=== PATIENT | female | born 1945 | race Caucasian/White ===

== ENCOUNTER 2019-08-04 00:38 | Inpatient (IN) | payer MEDICARE, OTHER ==
[~2019-08-04] VITALS: Ht 165.1 cm; Wt 110.0 kg
--- NOTE | ~2019-08-04 | CON ---
[address] [address] CONSULTATION Name: GABRIELE CHUN Room: [address] IN M.R.#: [id number] Admission: 08/04/19 Attend Phys: Diane Duval Discharge: Date of : 49 Report #: [id number] THIS REPORT FOR: //name// CC: Tonio Jenkins DATE OF SERVICE: 08/05/2019 NEPHROLOGY CONSULTATION CONSULTING PHYSICIAN: Gerard Jenkins DO REASON FOR NEPHROLOGY CONSULTATION: Acute kidney injury in a patient with renal transplant. REASON FOR ADMISSION: Dyspnea. HISTORY OF PRESENT ILLNESS: This is a 73-year-old female who was brought in from [place] yesterday because of shortness of breath. She has past medical history of chronic kidney disease. Her baseline creatinine is around 1.2. She has a history of donor kidney transplant in the past. She was brought in because of dyspnea and weight gain. She was started on Lasix IV 40 mg b.i.d. Her breathing seems to be better this morning. She also has history of COPD. She recently had a prolonged hospitalization at [place] because of shortness of breath. Her edema seems to be at baseline right now. She is on chronic immunosuppressive treatment. This morning, she was sleeping comfortably, I woke her up and she is just hungry and wants to eat some ____ toast. She is on 2 liters of oxygen via nasal cannula. A bladder scan will be checked. ALLERGIES: PENICILLIN, SULFA AND PIOGLITAZONE. REVIEW OF SYSTEMS: As mentioned in history of present illness. Her breathing is better. She is not having coughing right now. Otherwise, 10-point review of systems done, negative. She also has weakness. HOME MEDICATIONS: I do not think this is an actually accurate list, but looks like she is on mycophenolate mofetil 500 mg b.i.d. She is on warfarin, she is on Zofran, she is on metolazone 5 mg p.o. daily, which she was not on that when she was at [facility] recently, Lasix 40 mg once a day, amlodipine 5 mg daily, insulin, polyethylene glycol, tacrolimus. She is on 2 mg in the morning and 1 mg in the evening, sertraline, montelukast, magnesium, hydrocodone, acetaminophen, hydralazine, doxazosin, carvedilol, levothyroxine, glipizide, and potassium chloride 20 mEq once daily. PAST MEDICAL AND SURGICAL HISTORY: Includes chronic [place] [address] CONSULTATION Name: GABRIELE CHUN Room: [address] IN .R.#: [id number] Admission: 08/04/19 Attend Phys: Diane Duval Discharge: Date of : 49 Report #: [id number] failure, ejection fraction is not known, COPD, diabetes type 2, hypertension, obesity. She has a history of donor kidney transplant in 2006 and she has chronic kidney disease, her baseline creatinine around 1.2 and mostly dependent edema. FAMILY HISTORY: Noncontributory. SOCIAL HISTORY: She lives at [place] right now and that is why she has been here for a long time. She does not smoke or drink alcohol or use illicit drugs. PHYSICAL EXAMINATION: VITAL SIGNS: Blood pressure is 157/82, her respiratory rate is 16, her pulse is 87, temperature 36.6, her pulse ox is 99%. She is on 2 liters of oxygen by nasal cannula. GENERAL: She was sleeping, but easily woke her up. HEAD AND EYES: Atraumatic and normocephalic. EARS, NOSE, AND THROAT: Normal ears and nose. Normal mucous membranes. NECK: No JVD. CHEST: Bilaterally diminished breath sounds, but otherwise clear to auscultation bilaterally anteriorly. No crackles or wheezing. CARDIOVASCULAR: S1, S2 normal. No murmurs. ABDOMEN: Soft, nondistended, nontender and obese. LOWER EXTREMITIES: Her lower extremities skin is dry. She has 3+ chronic edema. NEUROLOGICAL FUNCTION: She has generalized weakness. PSYCHIATRIC: Mood seems to be normal. LABORATORY DATA: Hemoglobin is 8.9. Creatinine is 1.6, which is up from 1.4. Her INR is 9.0. Other labs are reviewed. IMAGING: Chest x-ray was reviewed. ASSESSMENT: 1. Acute kidney injury on chronic kidney disease stage 3. She has history of donor kidney transplant in 2006. Acute kidney injury in the setting of diuretic use. There is no need for checking renal imaging right now. We will order a UA. 2. History of chronic systolic congestive heart failure. She does not seem to be in acute exacerbation, helpful to get records from [facility]. 3. History of hypertension. 4. Paroxysmal atrial fibrillation. She is on anticoagulation, supratherapeutic INR, primary team is managing that. 5. History of chronic obstructive pulmonary disease. PLAN: [address] [place] [address] CONSULTATION Name: GABRIELE CHUN Room: [address] IN ..#: [id number] Admission: 08/04/19 Attend Phys: Diane Duval Discharge: Date of : 49 Report #: [id number] 1. There is no need for IV diuresis. Her edema seems to be at her baseline, we will put her on Bumex 0.5 mg twice a day. 2. Continue immunosuppressive treatment, but Prograf has been adjusted to 2 mg in the morning and 1 mg in the evening and we will check a Prograf level also tonight an hour before her dose. 3. She should be on 1800 mL fluid restriction. She is to be 2 gram sodium diet. 4. Please try to obtain records from [facility] in regards to especially her ejection fraction and she had a prolonged hospitalization there recently. 5. Also, check a bladder scan. 6. Strict I's and O's. Discussed with the patient and the patient's nurse. I have taken her off of the liquid diet and we will put her on a solid diet instead. Thank you for this consultation. We will continue to follow along with you. By: [id number] 134Tatiana Abbott MD /reny
[2019-08-04 00:42] VITALS: BP 121/85
[2019-08-04] MEDS ORDERED: POTASSIUM20 PO (00:52)
[2019-08-04] MEDS ORDERED: MYCOPHENOLATE500 MG PO (00:53)
[2019-08-04] MEDS ORDERED: LEVO-T100 MCG PO (00:55)
[2019-08-04] MEDS ORDERED: GLIPIZIDE5 MG PO (00:55)
[2019-08-04] MEDS ORDERED: CARVEDILOL25 MG PO (00:56)
[2019-08-04] MEDS ORDERED: CARDURA2 MG PO (00:57)
[2019-08-04] MEDS ORDERED: HYDRALAZINE HC100 MG PO (00:57)
[2019-08-04] MEDS ORDERED: NORCO 5-325 TA1 EAC1 PO (00:58)
[2019-08-04] MEDS ORDERED: MAGNESIUM250 M1 PO (00:59)
[2019-08-04 01:00] LABS: ABSOLUTE EOSINOPHILS 0.1 thou/uL (0.0-0.7); ABSOLUTE LYMPHOCYTES 0.8 thou/uL (0.8-5.3); ABSOLUTE MONOCYTES 0.3 thou/uL (0.0-1.2); ABSOLUTE NEUTROPHILS 3.5 thou/uL (1.6-8.1); BASOPHILS 0.8 %; EOSINOPHILS 2.3 %; HEMATOCRIT 28.4 % (37.0-47.0); HEMOGLOBIN 8.9 gm/dL (12.0-15.0); LYMPHOCYTES 16.3 %; MCH 26.7 pg (26.0-34.0); MCHC 31.4 g/dL (28.0-37.0); MCV 84.9 fL (80.0-100.0); MONOCYTES 6.4 %; MPV 8.8 fl. (7.2-11.1); NUCLEATED RBCS 0 /100WBC; PLATELET COUNT* 152 thou/uL (150-400); POLYS 74.2 %; RBC 3.34 mil/uL (4.20-5.00); RDW-CV 19.9 % (10.5-14.5); WBC 4.7 thou/uL (4.0-11.0)
[2019-08-04] MEDS ORDERED: SERTRALINE HCL100 MG PO (01:00)
[2019-08-04] MEDS ORDERED: SINGULAIR 10 MG10 M1 PO (01:00)
[2019-08-04] MEDS ORDERED: TACROLIMUS1 MG PO (01:02)
[2019-08-04] MEDS ORDERED: MIRALAX119 GM PO (01:02)
[2019-08-04] MEDS ORDERED: HUMALOG100 UNIT/1 SUBQ (01:03)
[2019-08-04] MEDS ORDERED: NORVASC 2.5 MG2.5 M1 PO (01:05)
[2019-08-04] MEDS ORDERED: LASIX 40 MG TAB40 MG PO (01:06)
[2019-08-04] MEDS ORDERED: ZAROXOLYN 5MG TA5 MG PO (01:06)
[2019-08-04] MEDS ORDERED: ZOFRAN4 MG PO (01:07)
[2019-08-04] MEDS ORDERED: COUMADIN 4 MG TA4 M1 PO (01:08)
[2019-08-04] MEDS ORDERED: MEPHYTON 5 MG TA5 M1 PO (01:10)
[2019-08-04 01:12] LABS: CALCIUM 7.3 mg/dL (8.5-10.1); CREATININE 1.4 mg/dL (0.6-1.3); POTASSIUM 3.9 mmol/L (3.5-5.1)
[2019-08-04 01:15] LABS: INFLUENZA A ANTIGEN Negative (Negative); INFLUENZA B ANTIGEN Negative (Negative)
[2019-08-04 01:18] LABS: APTT 47.9 Seconds (25.0-31.3); PROTIME 85.5 Seconds (9.20-11.50)
[2019-08-04 01:22] LABS: ALBUMIN 2.4 g/dL (3.4-5.0); TOTAL BILIRUBIN 0.3 mg/dL (<0.1-1.0); TOTAL PROTEIN 5.7 g/dL (6.4-8.2)
--- NOTE | 2019-08-04 01:48 | NUR ---
NOTED PATIENT HAS DIALYSIS CATHETER RIGHT ARM. PATIENT STATES THAT SINCE SHE HAS HAD A KIDNEY TRANSPLANT THE DIALYSIS CATHATER HAS NOT BEEN USED.
--- NOTE | 2019-08-04 04:25 | NUR ---
PATIENT RESTING IN HOSPITAL BED
[2019-08-04 05:20] VITALS: BP 159/76
[2019-08-04 08:03] VITALS: BP 159/76
--- NOTE | 2019-08-04 11:23 | NUR ---
PT.ALERT. JUST ADMITTED THIS AM. DAUGHTER AND GRANDAUGHTER AT BEDSIDE. PT. LOOKS TO DAUGHTER TO ANSWER MOST QUESTIONS. DAUGHTER SAID PT.HAS LIVED AT [facility] FOR A FEW MONTHS. SHE HAS NOT SEEN HER WALK THE PAST YEAR. SHE CAN TRANSFER IN TO WITH ASSIST. DAUGHTER SAID PT.WAS JUST DISCHARGED FROM [facility] A WEEK AGO. CAME BACK TO [facility] WITH SAME PROBLEM. PT.SAID CPAP REALLY HELPED HER AT [facility]. SHE DOES NOT HAVE ONE AT [facility]. PT.HAS HX OF A KIDNEY TRANSPLANT 14 YRS AGO. CM NOTIFIED ETHAN/HARVEY THAT PT.WAS ADMITTED HERE.
--- NOTE | 2019-08-04 14:19 | EKG ---
[place] [address] ELECTROCARDIOGRAM REPORT Name: GABRIELE CHUN Room: [address] ADM IN [facility].#: [id number] Admission: 08/04/19 Attend Phys: Diane Duval Discharge: Date of : 49 Report #: [id number] THIS REPORT FOR: //name// [facility] ED Test Date: 2019-08-04 Test Time: 00:48:38 Pat Name: GABRIELE CHUN Department: Room: [facility] Gender: F Client Renewal Specialist: [place] : 1945 Requested By: Wisam France Order Number: [id number] MD: Jean Marie Douglass Measurements Intervals [place] Rate: 81 P: TX: QRS: -26 QRSD: 146 T: 151 QT: 435 QTc: 505 Interpretive Statements Atrial fibrillation Left bundle branch block Baseline wander in lead(s) V1 No previous ECG available for comparison Electronically Signed On 08-04-2019 14:19:11 MEDICAL OFFICE WORKER by Jean Marie Douglass [email or web address] <ELECTRONICALLY SIGNED> By: Jean Marie Douglass MD, [facility] 08/04/19 1419 0048 0048 Jean Marie Douglass MD, FACC /EPI
[2019-08-04 15:26] VITALS: BP 166/87
--- NOTE | 2019-08-04 18:39 | NUR ---
ASSESSMENT COMPLETE. PT ALERT AND ORIENTED X4, FORGETFUL. PT BEDREST, Q2 TURN. NEPH AND CARDIAC CONSULTS. PT REPORTS NAUSEA AND HAD ONE EPISODE OF VOMITTING THIS AFTERNOON. PT IS ON 3L PER NC, VSS. CLEAR LIQUI DIET. ACCU CHECK ACHS. VIT K GIVEN FOR ELEVATED INR. RIGHT ARM EDEMA, TUBIGRIP IN PLACE. BLE EDEMA, ELEVATE ON PILLOWS. PUREWICK IN PLACE FOR INCONTINENCE. SEE ASSESSMENT AND VITALS FOR OTHER DETAILS. CALL LIGHT WITHIN REACH, WILL CONTINUE PLAN OF CARE.
[2019-08-04 20:00] VITALS: BP 151/79
[2019-08-05 06:06] LABS: CREATININE 1.6 mg/dL (0.6-1.3); POTASSIUM 3.8 mmol/L (3.5-5.1)
--- NOTE | 2019-08-05 06:38 | NUR ---
PATIENT SLEPT MOST OF THE NIGHT. IV REMAINS SALINE LOCKED. PATIENT HAS BEEN NAUSEATED MOST OF THE SHIFT. NAUSEA MEDICINE WAS GIVEN ABOUT EVERY FOUR HOURS. PATIENT REMAINS ON OXYGEN AT 3L PER NASAL CANNULA. WILL CONTINUE TO MONITOR.
[2019-08-05 07:38] VITALS: BP 157/82
[2019-08-05 08:43] LABS: PROTIME 20.1 Seconds (9.20-11.50)
[2019-08-05] MEDS ORDERED: TACROLIMUS1 MG PO (10:55)
--- NOTE | 2019-08-05 16:53 | NUR ---
ASSESSMENT COMPLETE. PT ALERT AND ORIENTED DURING THE DAY, FORGETFUL AT TIMES. NEPHROLOGY AND CARDIOLOGY CONSULTS COMPLETED. MEDICAL RECORDS REQUESTED BY DR JOHNSON FROM [place]. PT DENIES PAIN. TOLERATING DIET. FLUID RESTRICTION OF 1800ML. PT IS Q2 TURN. INCONT, PUREWICK IN PLACE. PT IS ON 3L PER NC, VSS. IV IN LEFT FA, SL. PT TAKES MEDICATIONS WITHOUT DIFFICULTY, TOLERATING DIET. SEE ASSESSMENT AND VITALS FOR OTHER DETAILS. CALL LIGHT WITHIN REACH. BED ALARM ON. WILL CONTINUE PLAN OF CARE
[2019-08-05 17:40] VITALS: BP 139/76
[2019-08-05 21:00] VITALS: BP 124/63
[2019-08-06 04:10] LABS: INR 1.4; PROTIME 14.1 Seconds (9.20-11.50)
[2019-08-06 04:15] LABS: CALCIUM 7.3 mg/dL (8.5-10.1); CREATININE 1.6 mg/dL (0.6-1.3); POTASSIUM 3.8 mmol/L (3.5-5.1)
[2019-08-06 04:17] LABS: % SATURATION 13 % (20-39); IRON 27 ug/dL (50-175)
--- NOTE | 2019-08-06 06:36 | NUR ---
PATIENT SLEPT PART OF THE NIGHT. FIRST PART OF THE SHIFT PATIENT WAS AGAIN COMPLAINING OF NAUSEA AND NOW INDIGESTION. MEDS WERE GIVEN WITH GOOD RELIEF. IV REMAINS SALINE LOCKED. PATIENT REMAINS ON OXYGEN AT 2L PER NASAL CANNULA. WILL CONTINUE TO MONITOR.
[2019-08-06 08:10] VITALS: BP 145/87
--- NOTE | 2019-08-06 10:25 | CON ---
[address] [address] CONSULTATION Name: GABRIELE CHUN Room: [address] IN .R.#: [id number] Admission: 08/04/19 Attend Phys: Diane Duval Discharge: Date of : 49 Report #: [id number] THIS REPORT FOR: //name// CC: Curry Holguin CARDIOLOGY CONSULTATION INDICATION: Heart failure and atrial fibrillation. HISTORY OF PRESENT ILLNESS: The patient is a 73-year-old white female with a history of chronic systolic heart failure and left bundle-branch block. She has had significant volume overload for at least the past year. Diuresis is complicated by the fact that she is status post orthotopic renal transplant. She has moderate renal dysfunction at this time. She is being followed by Nephrology. Her diuretics have been adjusted. On admission, she was having shortness of breath without chest pain. She states her breathing is somewhat better presently. She has chronic atrial fibrillation. Her INR was supratherapeutic at 9.0. Her warfarin has been held and she has received vitamin K. She is not having any acute bleeding problems. She denies any history of coronary artery disease or myocardial infarction. She reports a history of "congestive heart failure." PAST MEDICAL HISTORY: 1. Chronic atrial fibrillation. 2. Congestive heart failure. 3. Chronic renal failure, status post orthotopic renal transplant. 4. Type 2 diabetes mellitus. 5. COPD. 6. Hypertension. 7. Obesity. ALLERGIES: PENICILLIN, PIOGLITAZONE AND SULFAS. HOME MEDICATIONS: Potassium chloride 20 mEq p.o. daily, mycophenolate mofetil 500 mg p.o. b.i.d., glipizide 5 mg b.i.d., levothyroxine 88 mcg daily, carvedilol 25 mg b.i.d., Cardura 2 mg daily, hydralazine 100 mg t.i.d., Cheshire 5/325 q.6 hours p.r.n., magnesium 400 mg daily, Singulair 10 mg at bedtime, tacrolimus 1.5 mg p.o. at bedtime, MiraLax 17 g daily, sliding scale insulin, amlodipine 5 mg daily, furosemide 40 mg daily, metolazone 5 mg daily, Zofran 4 mg q.6 hours p.r.n. nausea and vomiting, warfarin 7 mg daily. SOCIAL HISTORY: The patient denies use of alcohol [place] tobacco[place] [address] CONSULTATION Name: GABRIELE CHUN Room: [address]#: [id number] Admission: 08/04/19 Attend Phys: Diane Duval Discharge: Date of : 49 Report #: [id number] resides in assisted care. PHYSICAL EXAMINATION: VITAL SIGNS: Blood pressure 157/82; pulses in the 70s and irregular. GENERAL: This is a pleasant elderly female, in no distress. Mood and affect appropriate. HEENT: Extraocular muscles are intact. Mucous membranes are moist. NECK: Shows no obvious jugular venous distention. There are no carotid bruits. CHEST: Reveals clear lung quezada. CARDIAC: Reveals an irregular rhythm that is rate controlled without gallop or murmur. ABDOMEN: Reveals a protuberant abdomen with positive bowel sounds. I do not appreciate a fluid wave. EXTREMITIES: Shows 3+ edema to the upper thighs bilaterally. SKIN: Dry. DIAGNOSTICS: A 12-lead EKG shows atrial fibrillation with left bundle-branch block. Chest x-ray shows cardiomegaly with vascular congestion. LABORATORIES: Reviewed. Sodium 142, potassium 3.8, chloride 103, bicarbonate 29, BUN 43, creatinine 1.6, serum glucose 246, AST 9, lipase 56, total bilirubin 0.3, calcium 8.0, magnesium 2.0, alkaline phosphatase 126, ALT 13, total protein 5.7, albumin 2.4, EGFR is 32. Troponin less than 0.06 on 3 separate occasions. NT-proBNP 14,569. INR on arrival was 9.0, currently 2.0. White blood cell count 4.7, hemoglobin 8.9, platelet count 152,000. IMPRESSION AND RECOMMENDATIONS: 1. Acute heart failure, likely systolic. Diuretics have been adjusted per Nephrology. We will follow I's and O's and daily weights. We will need to follow renal function closely. 2. Chronic atrial fibrillation, rate adequately controlled. We will resume warfarin at 5 mg daily and follow INRs. 3. Hypertension. Blood pressure modestly elevated presently. Continue medications outlined above with adjustments as needed to improve blood pressure. 4. Chronic renal insufficiency. Per Nephrology. 5. Diabetes. Per primary care physician. 6. Hypercoagulable state due to atrial fibrillation. The patient chronically on warfarin. 7. Supratherapeutic INR, reversed with vitamin K. <ELECTRONICALLY SIGNED> By: Hitesh Flores MD, FACC 08/06/19 1025 [id number] [id number] Flores MD, FACC /nt
[2019-08-06 16:00] VITALS: BP 158/74
[2019-08-06 20:00] VITALS: BP 143/45
--- NOTE | 2019-08-07 05:00 | NUR ---
PT HAS REQUESTED FROZEN DESSERTS AND JELLO T/O NIGHT BUT HAS C/O ACID REFLUX WELL. PT GIVEN PHERGHAN AND STILL REPORTING ACID REFLUX. PT HAS HAD 2 LOOSE STOOLS O/N SO MYLANTA WAS NOT GIVEN. PT IS ON RA. ESCOTO DRAINING APPROPRAIATELY. PT PROGRESSING TOWARDS GOALS. CALL LIGHT IN REACH
[2019-08-07 06:15] LABS: CALCIUM 7.6 mg/dL (8.5-10.1); CREATININE 1.5 mg/dL (0.6-1.3); POTASSIUM 3.7 mmol/L (3.5-5.1)
[2019-08-07 07:55] VITALS: BP 168/87
[2019-08-07 15:30] VITALS: BP 166/79
--- NOTE | 2019-08-07 16:07 | NUR ---
PRIETO discussed with dc workforce planner to send referral/updated information to [facility] admissions in preparation for when pt is ready to return to [facility]. [facility] ph [phone]
--- NOTE | 2019-08-07 16:38 | NUR ---
FAXED CLINICAL UPDATES AND PROGRESS NOTES TO [facility]. CONFIRMED WITH NI/MAUDE THAT SHE RECEIVED THE UPDATE.
--- NOTE | 2019-08-07 18:44 | NUR ---
PT A&OX3 VSS. PT UP TO RECLINER FOR PERIOD OF TIME THIS AFTERNOON. PT INITIALLY REFUSED TRANSFER BY FEMALE STAFF. PT EDUCATED THAT STAFF IS TRAINED TO SAFELY TRANSFER REGARDLESS OF GENDER, AND THAT MALE PT MAY NOT BE IMMEDIATELY AVAILABLE. PT TO BED FOR SUPPER. PT CONTINUES TO REQUEST JELLO AND SHERBERT. PT REMINDED OF FLUID RESTRICTION. ADMINISTERED ZOFRAN FOR NAUSEA, PANTOPRAZOLE FOR GERD. PT REMAINS ON PO DIURETIC. PT HAS 10 CM MIDLINE PLCED I MANOHAR ON 08/06/2019. LINE IS PATENT. DRESSING C/D/I. R ARM LIMB ALERT. PT ISW ACCUCHECK, INSULIN ADMINISTERED DIRECTED. PT RESTS IN BED AT THIS TIME WITH CALL LIGHT IN REACH. WILL CONTINUE TO MONITOR.
[2019-08-07 20:00] VITALS: BP 146/67
--- NOTE | 2019-08-07 23:40 | NUR ---
ASSUMED CARE AT 1930. PATIENT RESTING IN BED. LT ARM MIDLINE IV SITE INFUSES WELL. VERY EDEMATOUS ALL OVER HER BODY. INSTRUCTED THAT WE NEEDED A URINE SPECIMEN, AND WE COULD USE A BED VASQUEZ TO COLLECT IT. AFTER GIVING 80 MG OF LASIX PER ORDER, PATIENT DENIED NEED TO VOID. WHEN THIS NURSE STARTED TO PERFORM BLADDER SCAN, PATIENT STATED, "I MAY HAVE LET A LITTLE GO INTO THE PADS" VERY LARGE AMOUNT OF URINE NOTED IN PADS. BED LINENS, CHUX CHANGED, SKIN CARE DONE. REINFORCED NEED TO USE CALL LITE SO WE COULD COLLECT SPECIMEN AND SO SHE COULD VOID PER BEDPAN TO AVOID URINARY INCONTINENCE. PATIENT VERBALIZED UNDERSTANDING BUT STATED, "I DIDN'T WANT TO BOTHER YOU GIRLS." WILL CONTINUE TO MONITOR.
--- NOTE | 2019-08-08 05:30 | NUR ---
ASSUMED CARE AT 1930. PATIENT RESTED IN BED ALL NIGHT. MIDLINE TO LUE FLUSHES WELL. WAS INCONTINENT OF URINE AT BEGINNING OF SHIFT, SEE PREVIOUS NOTE. AFTER THIS, PATIENT DID USE BEDPAN THROUGH SHIFT. PERICARE DONE AFTER VOIDING. LABS DRAWN, URINE SENT. ALL NIGHT LONG ASKED FOR FOOD AND FLUID CONSTANTLY. EDUCATED MULTIPLE TIMES THAT SHE IS ON A CARB CONTROLLED DIET, THAT SHE IS ON FLUID RESTRICTIONS. PATIENT VERBALIZES UNDERSTANDING, BUT JUST A FEW MINUTES LATER SHE IS ASKING THE SAME THING. DID ALLOW 1/3 CUP OF COFFEE, SOME APPLESAUCE, APPLE JUICE TO MAINTAIN FLUID RESTRICITONS AND DIETARY EXPECTATIONS. REFUSES TO TURN. O2 2L/NC. HOURLY ROUNDS CONTINUE. BED ALARM ON. CALL LITE IN REACH.
[2019-08-08 05:47] LABS: URINE BILIRUBIN NEGATIVE (Negative); URINE BLOOD NEGATIVE (Negative); URINE CLARITY CLEAR; URINE COLOR YELLOW; URINE GLUCOSE-RANDOM NEGATIVE (Negative); URINE KETONES NEGATIVE (Negative); URINE LEUKOCYTES NEGATIVE (Negative); URINE NITRITE NEGATIVE (Negative); URINE PROTEIN NEGATIVE (Negative); URINE SPECIFIC GRAVITY 1.025 (1.005-1.030); URINE UROBILINOGEN 0.2 E.U./dl (0.2-1.0)
[2019-08-08 06:46] LABS: CALCIUM 7.3 mg/dL (8.5-10.1); CREATININE 1.5 mg/dL (0.6-1.3); POTASSIUM 3.9 mmol/L (3.5-5.1)
[2019-08-08 08:43] LABS: INR 1.3; PROTIME 12.9 Seconds (9.20-11.50)
[2019-08-08 09:00] VITALS: BP 179/97
[2019-08-08 16:00] VITALS: BP 144/69
--- NOTE | 2019-08-08 18:37 | NUR ---
ALERT AND ORIENTED. REPOSITIONED IN BED AT LEAST EVERY 2 HOURS. CONTINUES TO RECEIVE BREATHING TREATMENTS, IV STERIODS, AND IV ANTIBIODICS WITHOUT ADVERSE REACTIONS. MEDICATION GIVEN FOR CONTSTIPATION. CONTINUES TO RECEIVE MEDICATION FOR KIDNEY TRANSPLANT. ESCOTO CATHETER PLACE WITHOUT DIFFICULT DUE TO ORDER FOR 24 HOUR URINE COLLECTION AND PATIENT FREQUENTLY INCONTIENT OF URINE. URINE CURRENTLY BEING COLLECTED FOR 24 HOUR URINE COLLECTION. CALL LIGHT WITHIN REACH. DENIED NEED FOR PAIN MEDICATION TODAY. REMAINS ON O2 AT 2L/NC TO KEEP O2 SAT IN 90'S.
[2019-08-08 20:30] VITALS: BP 144/59
[2019-08-09 04:59] LABS: INR 1.4; PROTIME 14.6 Seconds (9.20-11.50)
--- NOTE | 2019-08-09 05:34 | NUR ---
ASSUMED CARES AT 1920. ALERT AND ORIENTED. FORGETFUL AT TIMES. O2 2L NC. HAD NAUSEA WITH VOMITING. ANTI NAUSEA MEDS GIVEN WITH LITTLE RELIEF. PT KEEPS WANTING TO EAT SNACKS. ALSO C/O EPIGASTRIC PAIN. ESCOTO CATHETER DD YELLOW URINE. USED BEDPAN FOR LIQUID/LOOSE STOOLS. REFUSED TO BE TURNED ONTO SIDES. FINALLY ABLE TO SLEEP SOME AFTER MIDNIGHT. CALL LIGHT IN REACH.
[2019-08-09 08:18] VITALS: BP 171/78
[2019-08-09 15:37] LABS: HEMATOCRIT 33.7 % (37.0-47.0); HEMOGLOBIN 10.7 gm/dL (12.0-15.0); MCHC 31.8 g/dL (28.0-37.0); MCV 84.9 fL (80.0-100.0); MPV 8.8 fl. (7.2-11.1); NUCLEATED RBCS 0 /100WBC; PLATELET COUNT* 165 thou/uL (150-400); RBC 3.97 mil/uL (4.20-5.00); RDW-CV 19.5 % (10.5-14.5)
[2019-08-09 15:48] LABS: ALBUMIN 2.2 g/dL (3.4-5.0); CALCIUM 7.4 mg/dL (8.5-10.1); CREATININE 1.4 mg/dL (0.6-1.3); POTASSIUM 3.4 mmol/L (3.5-5.1); TOTAL BILIRUBIN 0.2 mg/dL (<0.1-1.0); TOTAL PROTEIN 5.4 g/dL (6.4-8.2)
[2019-08-09 16:00] VITALS: BP 147/80
--- NOTE | 2019-08-09 16:38 | NUR ---
ASSUMMED CARE OF PT [id number], PT ALERT AND ORIENTED, PT DENIES NAUEA THIS SHIFT, TOLERATING FOOD WELL, ASKING FREQUENTLY FOR FLUIDS AND NEEDS REMINDING OF FLUID RESTRICTION, PT HAS MAINTAINED FLUID RESTRICTION THIS SHIFT, PICC LINE PATENT, ESCOTO PATENT AND 24 HOUR SPECIMEN SENT TO LAB AT 1500, LAB NEEDS ADDITIONAL RANDOM SPECIMEN SENT, ESCOTO WILL BE DISCONTINUED, PT DENIES NEED FOR PAIN MEDICATION, LOOSE YELLOWISH STOOL X Q THIS SHIFT, PT EDEMATOUS, O2 DISCONTINUED AND O2 SATS OF 93-95% ON RA, ASSESSMENT COMPLETE, HOURLY ROUNDING COMPLETE, WILL CONTINUE TO MONITOR.
[2019-08-09 16:56] LABS: ABSOLUTE LYMPHOCYTES 0.5 thou/uL (0.8-5.3); ABSOLUTE MONOCYTES 0.1 thou/uL (0.0-1.2); ABSOLUTE NEUTROPHILS 4.5 thou/uL (1.6-8.1)
[2019-08-09 17:00] LABS: ANISOCYTOSIS 1+; PLATELET ESTIMATE ADEQUATE
[2019-08-09 17:01] LABS: OVALOCYTES Occasional
[2019-08-10 05:49] LABS: CALCIUM 7.3 mg/dL (8.5-10.1); CREATININE 1.4 mg/dL (0.6-1.3); POTASSIUM 3.9 mmol/L (3.5-5.1)
--- NOTE | 2019-08-10 06:14 | NUR ---
PT SLEPT FAIRLY WELL AFTER MIDNIGHT. CO NAUSEA WITHOUT EMESIS, PO MEDS GIVEN WITH GOOD RESULT. HS ACCUCHECK 186, INSULIN GIVEN ORDERED. MANOHAR MIDLINE SL, ABX GIVEN ORDERED. PT INCONTINENT YELLOW LIQUID STOOL OVERNIGHT AND URINE, ALSO USING BEDPAN TO VOID. GENERALIZED EDEMA. PT WITH TURNING FOR ROBERT CARE, PT REFUSING POSITIONING TO SIDES MOST OF THE NIGHT, EDUCATION GIVEN. O2 1L PLACED AT HS FOR COMFORT PER PT REQUEST. AO, FORGETFUL. AM LABS DRAWN. MAINTAINED ON FLUID RESTRICTION. R LIMB ALERT. PO PAIN MED GIVEN FOR BACK AND ABD PAIN WITH GOOD RESULT. ABLE TO USE CALL LITE AND MAKE NEEDS KNOWN. BED ALARM ON FOR SAFETY.
[2019-08-10 08:15] VITALS: BP 177/82
[2019-08-10 13:07] LABS: URINE PROTEIN 3842 mg/24 hr (30-150); URINE PROTEIN (MG/DL) 320.2 mg/dL (Not Estab.)
--- NOTE | 2019-08-10 13:20 | NUR ---
Nutrition: Pt admitted for resp failure. H/o kidney transplant, HTN, DM, afib. Seen for high BMI. Wt: 242#, near usual. BUN 48, cr 1.4, BG 165, alb 2.2, prealb 22.4. Eating 100% of fluid restricted diet. Pt stated the food is good and she is looking forward to the next meal. No nutrition interventions needed at this time. Mild risk.
--- NOTE | 2019-08-10 14:48 | 2DMMODE ---
[place] [address] 2 D/M-MODE ECHOCARDIOGRAM Name: GABRIELE CHUN Room: [address] IN [facility]#: [id number] Admission: 08/04/19 Attend Phys: Gerard Jenkins Discharge: Date of : 49 Date of Service: 08/10/19 1447 Report #: [id number] THIS REPORT FOR: //name// APPROVED REPORT Study performed: 08/10/2019 14:05:16 EXAM: Comprehensive 2D, Doppler, and color-flow Echocardiogram Patient Location: In-Patient Room #: [facility] Status: routine BSA: 2.15 HR: 82 bpm BP: 177/82 mmHg Rhythm: Atrial Fibrillation Other Information Study Quality: Excellent Indications COPD Dyspnea 2D Dimensions IVSd: 16.43 (7-11mm) LVOT Diam: 19.98 (18-24mm) LVDd: 51.53 mm PWd: 13.00 (7-11mm) Ascending Ao: 34.25 (22-36mm) LVDs: 41.52 (25-40mm) Aortic Root: 32.48 mm Volumes Left Atrial Volume (Systole) LA ESV Index: 52.20 mL/m2 Aortic Valve AoV Peak Rodrigo.: 1.50 m/s AO Peak Gr.: 9.04 mmHg LVOT Max P.10 mmHg AO Mean Gr.: 4.61 mmHg LVOT Mean P.83 mmHg LVOT Max V: 1.01 m/s AO V2 VTI: 23.77 cm LVOT Mean V: 0.61 m/s MELANIA (VTI): 1.99 cm2 LVOT V1 VTI: 15.06 cm Pulmonary Valve PV Peak Rodrigo.: 0.99 m/s PV Peak Gr.: 3.94 [place] [address] 2 D/M-MODE ECHOCARDIOGRAM Name: GABRIELE CHUN Room: [address] IN [facility]#: [id number] Admission: 08/04/19 Attend Phys: Gerard Jenkins Discharge: Date of : 49 Date of Service: 08/10/19 1447 Report #: [id number] Tricuspid Valve RAP Estimate: 5.00 mmHg TR Peak Gr.: 38.38 mmHg RVSP: 43.00 mmHg PA Pressure: 43.00 mmHg Left Ventricle The left ventricle is normal size. There is normal LV segmental wall motion. Moderate concentric left ventricular hypertrophy. Left ventricular systolic function is borderline. LVEF is 50-55%. This study is not technically sufficient to allow evaluation of the LV diastolic function due to atrial fibrillation. Right Ventricle Right ventricle is dilated. The right ventricular systolic function is normal. Atria Left atrium is severely dilated. Right atrium is dilated. Aortic Valve Mild aortic valve sclerosis. Trace aortic regurgitation. There is no aortic valvular stenos Mitral Valve There is mitral annular calcification. Mild mitral regurgitation. No evidence of mitral valve stenosis. Tricuspid Valve The tricuspid valve is normal in structure. Moderate tricuspid regurgitation. estimated pa pressure 55 mm Hg Pulmonic Valve The pulmonary valve is normal in structure. Mild pulmonic regurgitation. Great Vessels The aortic root is normal in size. IVC is normal in size and collapses >50% with inspiration. Pericardium Trace pericardial effusion. <Conclusion> Moderate concentric left ventricular hypertrophy. LVEF is 50-55%. Left [place]rium [place] [address] 2 D/M-MODE ECHOCARDIOGRAM Name: GABRIELE CHUN Room: [address] IN .R.#: [id number] Admission: 08/04/19 Attend Phys: Gerard Jenkins Discharge: Date of : 49 Date of Service: 08/10/19 1447 Report #: [id number] Mild aortic valve sclerosis. Mild mitral regurgitation. Moderate tricuspid regurgitation. estimated pa pressure 55 mm Hg <ELECTRONICALLY SIGNED> By: Jean Marie Douglass MD, [facility] 08/10/19 1447 1447 1447 Jean Marie Douglass MD, FACC /INF
[2019-08-10 16:15] VITALS: BP 199/85
--- NOTE | 2019-08-10 17:26 | NUR ---
PT A&OX4 VSS. PT REMAINED IN BED THIS SHIFT. PT IS ACCUCHECK, SLIDING SCALE INSULIN PER PHYSICIAN. PT REMAINS ON 2000 ML FLUID RESTRICTION. PT HAS MIDLINE TO MANOHAR LINE PATENT. PT INTERMITTENTLY C/O NAUSEA AND HEARTBURN, BUT ALSAO REQUESTS MORE SNACKS. ECHO ORDERED FOR THIS PT TODAY. PT USES CALL LIGHT TO REQUEST BEDPAN. PT CONTINUES TO REST IN ROOM WITH CALL LIGHT IN REACH. WILL CONTINUE TO MONITOR.
[2019-08-10 20:00] VITALS: BP 164/75
--- NOTE | 2019-08-10 20:10 | NUR ---
SITTING UP IN BED WATCHING TV. VERY FORGETFUL. ASKS SAME QUESTIONS MULTIPLE MULTIPLE TIMES. TIMERS INSPECTOR LIGHT FREQUENTLY ASKING FOR TUMS. EXPLAINED MULTIPLE TIMES THAT SHE IS GETTING PROTONIX AND TUMS ONCE SHIFT. ASSISTED WITH REPOSITIONING TO HER SIDE.
[2019-08-11 05:03] LABS: INR 1.6; PROTIME 16.1 Seconds (9.20-11.50)
--- NOTE | 2019-08-11 05:16 | NUR ---
RESTED A FEW SHORT INTERVALS. AWAKE MOST OF THE NIGHT EATING AND WATCHING TV. HAD DIARRHEA. ROBERT CARE GIVEN. INCONTINENT OF URINE. ASSISTED WITH REPOSITIONING. HOURLY ROUNDING IN PROGRESS.
[2019-08-11 08:10] VITALS: BP 169/74
[2019-08-11 15:30] VITALS: BP 144/76
[2019-08-11 18:06] LABS: ANA INTERPRETATION Negative (())
--- NOTE | 2019-08-11 18:37 | NUR ---
PT AWAKE/ALERT. VSS. EDEMA PERSISTS, PO DIURETIC ADMINISTERED ORDERED. PT CONTINUES TO C/O NAUSEA AND/OR HEARTBURN INETRMITTENTLY BUT REQUESTS MORE SNACKS WELL. PT RE-EDUCATED REGARDING FLUID RESTRICTION. PT CONTINUES TO REQUEST SILVANA AND ONURBERT. PT IS ACCUCHECK, INSULIN ADMINSTERED DIRECTED. PT HAS MIDLINE PLACED TO MANOHAR, LINE IS PATENT, DRESSING C/D/I. PT REMAINS R ARM LIMB ALERT, BRACELET IN PLACE. PT ON 2L O2 BY NASAL CANNULA PER PT REQUEST. PT TO DC TO [facility] TOMORROW. PT RESTS IN BED WITH CALL LIGHT IN REACH. WILL CONTINUE TO MONITOR.
[2019-08-11 19:51] VITALS: BP 147/69
--- NOTE | 2019-08-12 03:03 | NUR ---
ASSESSMENT: PT REMAIN ALERT AND ORIENT TIMES THREE. FORGETFUL AT TIMES. MIDLINE INTACT. VSS, AFEBILE. POSSIBLE DC TO HOME TODAY. PT IS NOT COMPLIANT WITH FR OF 2000. PT SLEPT MOST OF THE NIGHT (ON/OFF). SLOW PROGRESS TOWARDS DC GOALS, WILL CONTINUE TO MONITOR.
[2019-08-12 06:39] LABS: CALCIUM 7.2 mg/dL (8.5-10.1); CREATININE 1.4 mg/dL (0.6-1.3); POTASSIUM 4.7 mmol/L (3.5-5.1)
[2019-08-12 08:57] VITALS: BP 171/87
[2019-08-12 09:19] VITALS: BP 171/87
[2019-08-12 13:08] LABS: GLOBULIN TOTAL 2.1 g/dL (2.2-3.9); M-SPIKE Not Observed g/dL (Not Observed)
--- NOTE | 2019-08-12 13:58 | NUR ---
Pt ready to dc to [facility] today and she also lives there in LTC. SW spoke with Danay in admissions at [facility] and arranged ride for between 3:30 and 4 pm. SW discussed with pt and pt is in agreement with plan. Pt nurse aware of plan and to call report to [facility] station ph [phone] at [facility]. SW to call pt dtr and inform of dc plan for today. US copied chart for continuation of care.
[2019-08-12] MEDS ORDERED: CORRECTOL5 M1 PO (15:30)
[2019-08-12] MEDS ORDERED: BUMETANIDE 1 MG1 M1 PO (15:31)
--- NOTE | 2019-08-12 15:31 | NUR ---
FAXED CLINICAL UPDATES TO [facility]. CONFIRMED WITH ETHAN THAT SHE RECEIVED. [facility] ARRANGED TRANSPORTATION TO [place] AT 3:30PM TODAY, 08/12/19.
[2019-08-12] MEDS ORDERED: BENADRYL25 MG PO (15:41)
[2019-08-12] MEDS ORDERED: FOLIC ACID1 MG PO (15:42)
[2019-08-12] MEDS ORDERED: MELATONIN10 M3 PO (15:43)
[2019-08-12] MEDS ORDERED: PROTONIX40 M2 PO (15:44)
[2019-08-12] MEDS ORDERED: TUMS DUAL ACTI1 EACH PO (15:45)
--- NOTE | 2019-08-12 15:45 | NUR ---
PT HAS BEEN UP TO RECLINER THIS AFTERNOO WITH O2 AT 3L PER NC. PT TOLERATED WELL AND HAS BEEN PLACED TO BED WITH MATTEO LIFT. PT READY TO DISCHAGE TO [facility] PER THEIR W/C VAN.BILAT LEG WRAPED WITH RUTHIE WRAPS TODAY WITH GOOD EFFECT. PT HAS WORKED WITH PT WELL. PT REMAINS ALERT AND ORIENTATED. LT UPPER ARM MID LINE REMOVED WITH OUT PROBLEM.
[2019-08-12] MEDS ORDERED: TYLENOL325 MG PO (15:46)
[2019-08-12] MEDS ORDERED: PHENERGAN 25 MG25 M1 PO (15:47)
[2019-08-12] MEDS ORDERED: PREDNISONE 10 M10 MG PO (15:49)
[2019-08-12] MEDS ORDERED: IPRAT-ALBUT 0.5-3 ML INH (15:51)
[2019-08-12] MEDS ORDERED: TUMS200 MG PO (15:55)
== END 2019-08-12 16:11 | DRG 291 ==
LOC: M.ERS 00:38 → M.TBA-ER 01:57 → M.3W 01:57
PROVIDERS: Family Medicine; Internal Medicine; Internal Medicine Cardiovascular Disease; Internal Medicine Nephrology; ADMIT Internal Medicine
PROC: 05HY33Z Insertion of Infusion Device into Upper Vein, Percutaneous Approach (ICD-10-PCS; principal; 2019-08-06)
DX: I13.0 Hypertensive heart and chronic kidney disease with heart failure and stage 1 through stage 4 chronic kidney disease, or unspecified chronic kidney disease (principal); J96.01 Acute respiratory failure with hypoxia; I50.23 Acute on chronic systolic (congestive) heart failure; T86.10 Unspecified complication of kidney transplant; N17.9 Acute kidney failure, unspecified; Z68.41 Body mass index [BMI] 40.0-44.9, adult; J44.0 Chronic obstructive pulmonary disease with (acute) lower respiratory infection; J44.1 Chronic obstructive pulmonary disease with (acute) exacerbation; I48.20 Chronic atrial fibrillation, unspecified; Z94.0 Kidney transplant status; N14.2 Nephropathy induced by unspecified drug, medicament or biological substance; I42.9 Cardiomyopathy, unspecified; E66.9 Obesity, unspecified; J40 Bronchitis, not specified as acute or chronic; E11.22 Type 2 diabetes mellitus with diabetic chronic kidney disease; N18.3 Chronic kidney disease, stage 3 (moderate); I44.7 Left bundle-branch block, unspecified; Y83.8 Other surgical procedures as the cause of abnormal reaction of the patient, or of later complication, without mention of misadventure at the time of the procedure; D50.9 Iron deficiency anemia, unspecified; D64.9 Anemia, unspecified; Z88.2 Allergy status to sulfonamides; Z79.01 Long term (current) use of anticoagulants; Z79.4 Long term (current) use of insulin; Z79.891 Long term (current) use of opiate analgesic; Z88.0 Allergy status to penicillin; Z79.899 Other long term (current) drug therapy; Z88.8 Allergy status to other drugs, medicaments and biological substances

== ENCOUNTER 2019-08-23 15:51 | Inpatient (IN) | payer MEDICARE, OTHER ==
[~2019-08-23] VITALS: Ht 165.1 cm; Wt 111.6 kg
[~2019-08-23 15:51] MED LIST: BENADRYL25 MG PO; BUMETANIDE 1 MG1 M1 PO; CARDURA2 MG PO; CARVEDILOL25 MG PO; CORRECTOL5 M1 PO; COUMADIN 4 MG TA4 M1 PO; FOLIC ACID1 MG PO; GLIPIZIDE5 MG PO; HUMALOG100 UNIT/1 SUBQ; HYDRALAZINE HC100 MG PO; IPRAT-ALBUT 0.5-3 ML INH; LASIX 40 MG TAB40 MG PO; LEVO-T100 MCG PO; MAGNESIUM250 M1 PO; MELATONIN10 M3 PO; MEPHYTON 5 MG TA5 M1 PO; MIRALAX119 GM PO; MYCOPHENOLATE500 MG PO; NORCO 5-325 TA1 EAC1 PO; NORVASC 2.5 MG2.5 M1 PO; PHENERGAN 25 MG25 M1 PO; POTASSIUM20 PO; PREDNISONE 10 M10 MG PO; PROTONIX40 M2 PO; SERTRALINE HCL100 MG PO; SINGULAIR 10 MG10 M1 PO; TACROLIMUS1 MG PO; TUMS DUAL ACTI1 EACH PO; TUMS200 MG PO; TYLENOL325 MG PO; ZAROXOLYN 5MG TA5 MG PO; ZOFRAN4 MG PO
[2019-08-23 15:52] VITALS: BP 130/70
[2019-08-23] MEDS ORDERED: COUMADIN 2.5MG2.5 M1 PO (16:00)
[2019-08-23 16:31] LABS: HEMATOCRIT 37.2 % (37.0-47.0); HEMOGLOBIN 11.7 gm/dL (12.0-15.0); MCH 27.3 pg (26.0-34.0); MCHC 31.4 g/dL (28.0-37.0); MCV 86.8 fL (80.0-100.0); MPV 9.3 fl. (7.2-11.1); NUCLEATED RBCS 0 /100WBC; PLATELET COUNT* 110 thou/uL (150-400); RBC 4.28 mil/uL (4.20-5.00); RDW-CV 20.6 % (10.5-14.5); WBC 5.3 thou/uL (4.0-11.0)
[2019-08-23 16:34] LABS: BE -4.3 mmol/L (-2 to +3); PCO2 47.8 mmHg (35.0-45.0); PO2 96.5 mmHg (75.0-100.0)
[2019-08-23 16:35] LABS: pH 7.289 (7.340-7.450)
[2019-08-23 16:39] LABS: APTT 32.7 Seconds (25.0-31.3); INR 2.3; PROTIME 23.2 Seconds (9.20-11.50)
[2019-08-23 16:41] LABS: ANION GAP 6 mmol/L (7-16); BUN 67 mg/dL (7-18); CALCIUM 6.7 mg/dL (8.5-10.1); CHLORIDE 103 mmol/L (98-107); CO2 30 mmol/L (21-32); CREATININE 2.4 mg/dL (0.6-1.3); GLUCOSE 241 mg/dL (70-99); POTASSIUM 4.6 mmol/L (3.5-5.1); SODIUM 139 mmol/L (136-145)
[2019-08-23 16:47] LABS: ALBUMIN 2.7 g/dL (3.4-5.0); ALKALINE PHOSPHATASE 107 U/L (46-116); NT-PRO BRAIN NAT PEPTIDE > 35000 pg/mL (<300); SGOT 13 U/L (15-37); SGPT 21 U/L (30-65); TOTAL BILIRUBIN 0.3 mg/dL (<0.1-1.0); TOTAL PROTEIN 5.7 g/dL (6.4-8.2)
[2019-08-23 17:00] LABS: ABSOLUTE LYMPHOCYTES 0.4 thou/uL (0.8-5.3); ABSOLUTE MONOCYTES 0.2 thou/uL (0.0-1.2); ABSOLUTE NEUTROPHILS 4.7 thou/uL (1.6-8.1); ATYPICAL LYMPHS 5 %; PLATELET ESTIMATE DECREASED; POIKILOCYTOSIS 2+
[2019-08-23 17:01] LABS: ANISOCYTOSIS 2+
--- NOTE | 2019-08-23 18:12 | NUR ---
PUREWICK APPLIED TO PATIENT AT THIS TIME.
[2019-08-23 19:52] VITALS: BP 124/75
[2019-08-23 22:00] VITALS: BP 143/75
[2019-08-24] VITALS (7 sets, daily range): BP systolic 115–166; BP diastolic 68–87
[2019-08-24 01:07] LABS: URINE BILIRUBIN NEGATIVE (Negative); URINE BLOOD NEGATIVE (Negative); URINE CLARITY CLEAR; URINE COLOR YELLOW; URINE GLUCOSE-RANDOM 3+ (Negative); URINE KETONES NEGATIVE (Negative); URINE LEUKOCYTES-REFLEX NEGATIVE (Negative); URINE NITRITE-REFLEX NEGATIVE (Negative); URINE PROTEIN 2+ (Negative); URINE SPECIFIC GRAVITY 1.015 (1.005-1.030); URINE UROBILINOGEN 0.2 E.U./dl (0.2-1.0)
[2019-08-24 04:15] LABS: CASTS None Seen /LPF (None Seen); SQUAMOUS 0-3 Few /LPF (0-3)
[2019-08-24 04:16] LABS: CRYSTALS None Seen /LPF (None Seen); URINE RBC 0-2 Rare /HPF (0-2); URINE WBC-REFLEX None Seen /HPF (0-5)
--- NOTE | 2019-08-24 06:09 | NUR ---
ASSUMED CARE OF PT AT 1999. PT IS ALERT AND ORIENTED. VSS. PERRLA. PTS RIGHT ARM ELEVATED. LEGS WRAPPED. PT IS IN A FIB ON THE TELEMETRY. PT IS HAVING FREQUENT LOOSE STOOLS. PT IS RESTING COMFORTABLY INBED. RESPIRATIONS ARE EVEN AND NONLABORED. WILL CONTINUE TO MONITOR PT.
[2019-08-24 09:49] LABS: INR 2.2; PROTIME 22.4 Seconds (9.20-11.50)
[2019-08-24 10:17] LABS: CALCIUM 6.9 mg/dL (8.5-10.1); CREATININE 2.3 mg/dL (0.6-1.3); MAGNESIUM 1.7 mg/dL (1.8-2.4); PHOSPHORUS* 3.1 mg/dL (2.5-4.9); POTASSIUM 4.4 mmol/L (3.5-5.1)
--- NOTE | 2019-08-24 10:39 | EKG ---
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: : 1945 Requested By: Wisam Fracne Order Number: [id number] MD: Jean Marie Douglass Measurements Intervals [place] Rate: 87 P: [place]: QRS: -16 QRSD: 146 T: 174 QT: 442 QTc: 532 Interpretive Statements Atrial fibrillation Left bundle branch block Compared to ECG 08/04/2019 00:48:38 No significant changes Electronically Signed On 08-24-2019 10:39:17 SWITCHBOX ASSEMBLER by Jean Marie Douglass [email or web address] <ELECTRONICALLY SIGNED> By: Jean Marie Douglass MD, [facility] 08/24/19 1039 1600 1600 Jean Marie Douglass MD, FAC /EPI
--- NOTE | 2019-08-24 15:13 | NUR ---
Pt is A&O. Resides at [facility], but is being skilled post hospital dc in early August. Pt is [place] bound. Pt wears o2. Spoke with Danay at [facility], they are able to accept Pt back at dc. Following.
--- NOTE | 2019-08-24 18:22 | NUR ---
PT IS RESTING AT THIS TIME WITH CALL LIGHT IN REACH. VSS ON 3L NC. MONITOR SHOWS AFIB.. IVSL. ASSESSMENT FINDINGS CHARTED. NO C/O PAIN ON ROUNDING. FALL PRECAUTIONS IN PLACE
[2019-08-25 04:00] VITALS: BP 138/86
[2019-08-25 05:25] LABS: HEMATOCRIT 31.8 % (37.0-47.0); HEMOGLOBIN 10.1 gm/dL (12.0-15.0); MCH 27.3 pg (26.0-34.0); MCHC 31.8 g/dL (28.0-37.0); MCV 85.9 fL (80.0-100.0); RBC 3.7 mil/uL (4.20-5.00); RDW-CV 21.4 % (10.5-14.5); WBC 3.9 thou/uL (4.0-11.0)
[2019-08-25 05:33] LABS: INR 1.8; PROTIME 18.5 Seconds (9.20-11.50)
[2019-08-25 05:44] LABS: CREATININE 2.1 mg/dL (0.6-1.3); MAGNESIUM 1.6 mg/dL (1.8-2.4); POTASSIUM 4.5 mmol/L (3.5-5.1)
[2019-08-25 05:55] LABS: CALCIUM 6.5 mg/dL (8.5-10.1)
[2019-08-25 06:58] LABS: ALBUMIN 2.2 g/dL (3.4-5.0); CALCIUM 6.8 mg/dL (8.5-10.1); CREATININE 2.2 mg/dL (0.6-1.3); MAGNESIUM 1.6 mg/dL (1.8-2.4); PHOSPHORUS* 2.8 mg/dL (2.5-4.9); POTASSIUM 4.5 mmol/L (3.5-5.1)
[2019-08-25 08:00] VITALS: BP 144/82
--- NOTE | 2019-08-25 09:05 | NUR ---
ASSUMED PATIENT CARE AT 1900. ASSESSMENT COMPLETED CHARTED. PATIENT IS AFIB WITH A BBB. HOURLY ROUNDING IN PLACE FOR PATIENT SAFETY. CLWR.
[2019-08-25 12:30] VITALS: BP 130/74
--- NOTE | 2019-08-25 16:10 | NUR ---
RE: Heart failure medication education I provided the patient with a heart failure medication information handout. We discussed carvedilol and all patients questions were answered. Pharmacy is available for any future questions. Thank you.
--- NOTE | 2019-08-25 18:35 | NUR ---
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 INCONTINENT CARE GIVEN, Q 2 HOUR TURNS AND HOURLY ROUNDING COMPLETED.
[2019-08-25 23:56] VITALS: BP 138/82
[2019-08-26 04:41] VITALS: BP 154/88
[2019-08-26 05:43] LABS: INR 1.5; PROTIME 15.4 Seconds (9.20-11.50)
[2019-08-26 05:49] LABS: CALCIUM 6.9 mg/dL (8.5-10.1); CREATININE 2.1 mg/dL (0.6-1.3); MAGNESIUM 1.6 mg/dL (1.8-2.4); POTASSIUM 4.6 mmol/L (3.5-5.1)
--- NOTE | 2019-08-26 07:59 | NUR ---
ASSUMED PATIENT CARE AT 1900. ASSESSMENT COMPLETED CHARTED. PATIENT IS MED-SURG. HOURLY ROUNDING IN PLACE FOR PATIENT SFETY.CLWR.
[2019-08-26 08:22] VITALS: BP 145/78
--- NOTE | 2019-08-26 08:58 | NUR ---
ASSUMED CARE OF PT THIS AM AROUND 714- MS STATUS IN PLACE AND MAINTAIN INDICATED- UPON ASSESSMENT PT NOTED TO BE RESTING IN BED, WATCHING TV- PT A&O X4- CONTINENT OF BOWEL, PUR WICK IN PLACE DRAINING EFFECTIVELY; AND CHANGED THIS AM- Q [address] INDICATED- RUL COURSE, DIMINISHED IN BASES; HORSENESS NOTED- RESP EVEN AND UN-LABORED- VSS, O2 SAT 93% ON RA- ABD SOFT/ROUND/NON-TENDER, BS X4 QUADS- LAST BM REPORTED 08/25/18- IV NOTED TO LEFT FA INTACT AND SL- GOOD PO INTAKE NOTED THIS AM PRESCRIBED- MAG NOTED AT 1.6 THIS AM, SCHEDULED MG 400MG ORDERED DAILY- 3+ BLE EDEMA NOTED, 2+ EDEMA NOTED TO RUE- BS MONITORED ORDERED, INSULIN PRESCRIBED- CALL LIGHT AND PERSONAL BELONGINGS WITH IN REACH- HOURLY ROUNDS IN PLACE R/T SAFETY/NEEDS- ALL NEEDS MET AT THIS TIME-WCTM
--- NOTE | 2019-08-26 13:03 | NUR ---
OT COMPLETED CHART REVIEW FOR LYMPHEDEMA WRAPS. WRAPS ARE CONTRAINDICATD AT THIS TIME DUE TO ACUTE CHF SYMPTOMS, ADDITION OF PULMONARY EDEMA COULD PUT PT FURTHER AT RISK FOR EXACBERATION OF PULMONARY/CARDIAC COMPLICATIONS FLUID WILL NOT EFFECTIVELY BE EXPELLED VIA LYMPHATIC SYSTEM. LYMPHEDEMA PT WILL CONT TO MONITOR, THANK YOU FOR THE REFERRAL
[2019-08-26 15:04] LABS: URINE BILIRUBIN NEGATIVE (Negative); URINE BLOOD NEGATIVE (Negative); URINE CLARITY SL CLOUDY; URINE COLOR YELLOW; URINE GLUCOSE-RANDOM TRACE (Negative); URINE KETONES NEGATIVE (Negative); URINE LEUKOCYTES-REFLEX NEGATIVE (Negative); URINE NITRITE-REFLEX NEGATIVE (Negative); URINE PROTEIN 3+ (Negative); URINE SPECIFIC GRAVITY 1.025 (1.005-1.030); URINE UROBILINOGEN 0.2 E.U./dl (0.2-1.0)
[2019-08-26 15:10] LABS: BACTERIA-REFLEX 1-9 Few /HPF (None Seen); CASTS None Seen /LPF (None Seen); MUCUS 0-3 Light strn/LPF (None Seen); SQUAMOUS 0-3 Few /LPF (0-3); URINE RBC 0-2 Rare /HPF (0-2); URINE WBC-REFLEX 0-5 Rare /HPF (0-5)
[2019-08-26 15:11] LABS: AMORPHOUS URATES Many /LPF (None Seen)
[2019-08-26 16:00] VITALS: BP 143/81
[2019-08-26 20:00] VITALS: BP 153/91
[2019-08-27] VITALS: BP 156/85
--- NOTE | 2019-08-27 05:11 | NUR ---
ASSUMED PATIENT CARE AT 1900. ASSESSMENT COMPLETED CHARTED. PATIENT IS MED-SURG. HOURLY ROUNDING IN PLACE FOR PATIENT SAFETY. CLWR.
[2019-08-27 05:17] LABS: CREATININE 2.2 mg/dL (0.6-1.3); INR 1.7; MAGNESIUM 1.7 mg/dL (1.8-2.4); POTASSIUM 4.7 mmol/L (3.5-5.1); PROTIME 17.2 Seconds (9.20-11.50)
[2019-08-27 08:27] VITALS: BP 153/84
--- NOTE | 2019-08-27 09:58 | NUR ---
ASSUMED CARE OF PT THIS AM AROUND 714- MS STATUS IN PLACE AND MAINTAINED INDICATED- PT A&O X4, FORGETFULL- CONTINENT VS INCONTIENT OF BOWEL, ESCOTO PLACED THIS AM 16F FOR RETENTION, D/D CLEAR YELLOW URINE- ASSIST X1 WITH TRANSFERS- RUL DIMINISHED, ALL OTHERS CTA- VSS, O2 SAT 94% ON RA- ABD SOFT/ROUND/NON-TENDER, BS X4 QUADS- LAST BM REPORTED ON PRIOR SHIFT- IV NOTED TO LEFT FA INTACT AND SL- GOOD PO INTAKE NOTED THIS AM WITH BREAKFAST, SSI PRESCRIBED- ZOFRAN AND TUMS PRN GIVEN THIS AM R/T C/O NAUSEA/ABD DISCOMFORT- 2L F/R IN PLACE INDICATED- CALL LIGHT AND PERSONAL BELONGINGS WITH IN REACH- PT MAKES NEEDS KNOWN- ALL NEEDS MET AT THIS TIME-WCTM
[2019-08-27 15:47] VITALS: BP 152/78
[2019-08-27 20:00] VITALS: BP 157/97
[2019-08-27 23:37] VITALS: BP 150/86
[2019-08-28 05:21] LABS: INR 1.9; PROTIME 18.6 Seconds (9.20-11.50)
--- NOTE | 2019-08-28 06:04 | NUR ---
PT REMAINS ON FLUID RESTRICTION OF 1999, TOLERATING WELL. C/O PAIN TO ABD RATED AT A 5 BUT IS TOLERABLE AT THIS TIME FOR THE PT. NO CONCERNS NOTED BY PT ALL CURRENT NEEDS HAVE BEEN MET, PT REMAINS HIGH FALL RISK D/T LACK OF STREGTH BUT ALSO THE FEAR OF FALLING. PT DOES WELL WITH ENCOURAGEMENT. CURRENTLY ASLEEP WITH CALL LIGHT WITHIN REACH AND BED ALARM ON.
[2019-08-28 08:55] VITALS: BP 155/90
[2019-08-28 10:28] LABS: ALBUMIN 2.2 g/dL (3.4-5.0); CALCIUM 6.9 mg/dL (8.5-10.1); CREATININE 2.3 mg/dL (0.6-1.3); PHOSPHORUS* 2.5 mg/dL (2.5-4.9); POTASSIUM 4.7 mmol/L (3.5-5.1)
--- NOTE | 2019-08-28 11:40 | NUR ---
ASSUMED CARE AFTER REPORT APPROX 0730. SLEEPING UPON FIRST ENCOUNTER. OX4 AT TIME OF ASSESSMENT/VS. ABLE TO COMMUNICATE NEEDS TO STAFF. TUBE TESTER IN PLACE, SR. UP TO RECLINER NOW, MEDS GIVEN PER OCT. CALL LIGHT IN REACH. HOURLY ROUNDING FOR SAFETY/NEEDS.
--- NOTE | 2019-08-28 12:10 | NUR ---
[facility] is able to accept Pt back over the weekend if medically stable for dc. Contact [facility] at [phone]. DC orders will need to be faxed and transportation should be arranged through [employer] (if wc is appropriate) [phone]. Report number [id number] f: [phone]
[2019-08-28 12:30] VITALS: BP 145/73
[2019-08-28 16:51] VITALS: BP 144/87
[2019-08-28 20:00] VITALS: BP 137/85
[2019-08-29] VITALS: BP 143/86
[2019-08-29 04:00] VITALS: BP 126/56
--- NOTE | 2019-08-29 05:05 | NUR ---
PT HAD C/O PAIN TO ABD. STATED HER STOMACH WAS UPSET. ONE EPISODE OF DIARRHEA TREATED WITH PRN MEDICATION. TREATED NAUSEA WITH PRN MEDICATION WHICH WAS NOT EFFECTIVE. GAVE PT CRACKERS SHE STATED SHE DID NOT EAT MUCH WITH DINNER, THIS WAS EFFECTIVE FOR THE PT. EDUCATED THE PT ON THE BENIFITS OF TAKING MEDICATIONS WITH FOOD TO HELP WITH THIS ISSUE. HAS HAD TROUBLE SLEEPING THIS SHIFT, PRN MEDICATION NOT EFFECTIVE. CURRENTLY SITTING UP IN BED WATCHING TV WITH BED ALARM ON AND CALL LIGHT WITHIN REACH.
[2019-08-29 05:35] LABS: INR 1.9; PROTIME 19.4 Seconds (9.20-11.50)
[2019-08-29 05:51] LABS: CALCIUM 6.9 mg/dL (8.5-10.1); CREATININE 2.2 mg/dL (0.6-1.3); POTASSIUM 4.6 mmol/L (3.5-5.1)
[2019-08-29 08:00] VITALS: BP 153/91
[2019-08-29 15:51] VITALS: BP 146/84
[2019-08-29 20:00] VITALS: BP 157/83
--- NOTE | 2019-08-29 20:54 | NUR ---
ASSUMED PT CARE AT 0730, FULL ASSESMENT DONE CHARTED. PT A/O X4, PLEASANT, DENIES PAIN. VSS, M/S STATUS. ESCOTO IN PLACE DRAINING YELLOW URINE. PT REFUSING TO GET UP TO CHAIR TODAY. PT STATES SHE IS ANXIOUS THAT SHE WILL GET OUT OF BREATH. PT VERY SOA WHEN THE BED LAYS FLAT FOR BATHING. PT ON RA, STS 95%. PT INCONT OF BOWEL ONCE TODAY. ASSISTED PT WITH MEAL PLANS FOR THE SHIFT. PT HAS POOR APITITE. FALL PRECATUIOINS IN PLACE. CALL [facility] IN REACH. REPORT GIVEN TO SAIRA ALMAZAN.
[2019-08-30] VITALS: BP 155/86
--- NOTE | 2019-08-30 05:40 | NUR ---
PT HAD C/O HEADACHE WITH FULL RELIEF FROM PRN MEDICATION. SLEEP THIS SHIFT IMPROVED FROM LAST 2 HS SHIFTS PT WAS ABLE TO SLEEP MAJORITY OF THE SHIFT. NO OTHER CONCERNS STATED BY PT, CURRENTLY ASLEEP IN BED WITH BED ALARM ON AND CALL LIGHT WITHIN REACH.
[2019-08-30 05:45] LABS: HEMATOCRIT 30.6 % (37.0-47.0); HEMOGLOBIN 9.9 gm/dL (12.0-15.0); MCH 27.7 pg (26.0-34.0); MCHC 32.4 g/dL (28.0-37.0); MCV 85.5 fL (80.0-100.0); MPV 8.4 fl. (7.2-11.1); RBC 3.58 mil/uL (4.20-5.00); RDW-CV 21.4 % (10.5-14.5); WBC 3.5 thou/uL (4.0-11.0)
[2019-08-30 06:05] LABS: ALBUMIN 2.1 g/dL (3.4-5.0); CREATININE 2.1 mg/dL (0.6-1.3); MAGNESIUM 1.6 mg/dL (1.8-2.4); PHOSPHORUS* 2.2 mg/dL (2.5-4.9); POTASSIUM 4.7 mmol/L (3.5-5.1)
[2019-08-30 07:59] LABS: INR 2.2; PROTIME 21.8 Seconds (9.20-11.50)
[2019-08-30 08:00] VITALS: BP 165/96
[2019-08-30 12:13] VITALS: BP 146/80
[2019-08-30 16:30] VITALS: BP 164/91
[2019-08-30 20:00] VITALS: BP 163/94
--- NOTE | 2019-08-30 20:01 | NUR ---
PT UP TO CHAIR MOST OF THE DAY. WHEN PT WENT TO COMMODE TO HAVE BOWEL MOVEMENT, PT GOT VERY ANXIOUS, THOUGHT SHE WAS GOING TO FALL, DIDN'T THINK SHE COULD STAND, BECAME VERY SELF DOUBTING. SHE WAS REASSURED AND ENDED UP BEING ABLE TO GET UP TO COMMODE WITH 2 AND GAIT BELT. PT THEN SAT ON COMMODE AND DID THE SAME THING WHEN SHE WAS FINISHED AND WANTING TO GET BACK TO CHAIR. THREE PEOPLE ASSISTED HER BACK TO CHAIR.
[2019-08-31] VITALS: BP 149/92
--- NOTE | 2019-08-31 06:11 | NUR ---
PT ALERT ORIENTED. SITTING IN CHAIR AT SHIFT CHG. MATTEO LIFT USED TO GET PT BACK TO BED. MED SURG STATUS. ON 1999 ML . TIGIST WITH CLEAR YELLOW. WCTM
[2019-08-31 08:00] VITALS: BP 143/84
--- NOTE | 2019-08-31 14:46 | NUR ---
Nutrition: Pt with UTI. Seen for LOS. Regular diet ordered. BG 102, alb 2.1, prealb 19.6. Wt: 229#. Eating 50-70% of meals. Consider mild risk.
[2019-08-31 16:00] VITALS: BP 159/106
--- NOTE | 2019-08-31 18:45 | NUR ---
ASSUMED PT CARE AT 0700, PT A&O X4, VSS, RA, REMAINS MED SURG STATUS, FULL ASSESSMENT CHARTED. UP WITH PT TO CHAIR, TOLERATED WELL. Q 2 HOUR TURNS AND HOURLY ROUNDING COMPLETED.
[2019-08-31 20:00] VITALS: BP 159/106
[2019-09-01 00:25] VITALS: BP 136/84
[2019-09-01 08:00] VITALS: BP 140/87
[2019-09-01 08:21] LABS: CALCIUM 6.8 mg/dL (8.5-10.1); CREATININE 2.1 mg/dL (0.6-1.3); POTASSIUM 4.7 mmol/L (3.5-5.1)
--- NOTE | 2019-09-01 09:35 | NUR ---
VERN spoke with regarding dispo. Dr to speak with nephro and determine if Pt is medically stable to dc. Plan for Pt to return to [facility]. Following.
[2019-09-01 12:25] VITALS: BP 158/94
--- NOTE | 2019-09-01 14:02 | NUR ---
VERN spoke with verito Coronado dc back to [facility] tomorrow. VERN updated Danay at [facility].
--- NOTE | 2019-09-01 16:00 | NUR ---
ASSUMED PT CARE AT 0700, PT A&O X4, RA, REMAINS MED SURG STATUS, FULL ASSESSMENT CHARTED. PT TRANSFERRED TO [facility] D/T MED SURG STATUS, REPORT GIVEN TO THA GEORGES. HOURLY ROUNDING AND Q 2 HOUR TURNS COMPLETED.
[2019-09-01 17:11] VITALS: BP 150/92
--- NOTE | 2019-09-01 17:38 | NUR ---
PATIENT ARRIVED TO UNIT AT 1600. ALERT AND ORIENTED X4. PLEASANT AND COOPERATIVE. DENIES PAIN AT THIS TIME. CONTINUES ON FLUID RESTICTION. AGREE WITH AM ASSESSMENT EXCEPT BILATERAL HEELS DARK PINK AND ELEVATED ON PILLOW. RIGHT ARM ELBOW AREA HAS 3+ PITTING EDEMA. LOWER EXTREMITIES 4+ PITTING EDEMA. LUNG SOUNDS HAVE FINE CRACKLES IN RIGHT BASE AND DIMINISHED IN LEFT BASE. ESCOTO CATHETER PATENT WITH CLEAR DARK YELLOW URINE. CALL LIGHT WITHIN REACH. BED ALARM ON.
[2019-09-01 20:00] VITALS: BP 149/99
--- NOTE | 2019-09-02 04:19 | NUR ---
ASSUMED PATIENT CARE AT 1900. PATIENT ALERT AND ORIENTED TIMES FOUR. Guy CATHETER IN PLACE. PATENT TO DEPENDENT DRAINAGE. NO COMPLAINTS OF PAIN OR DISCOMFORT NOTED. FALL RISK PRECAUTIONS IN PLACE. 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
[2019-09-02 07:06] LABS: CALCIUM 6.7 mg/dL (8.5-10.1); CREATININE 2.1 mg/dL (0.6-1.3); POTASSIUM 4.7 mmol/L (3.5-5.1)
[2019-09-02 08:00] VITALS: BP 144/89
--- NOTE | 2019-09-02 16:33 | NUR ---
PT A&Ox4. VITALS STABLE. IV PATENT. DENIED PAIN. SOME NAUSEA, PARTIALLY CONTROLLED WITH ZOFRAN AND PROMETHAZINE GIVEN. UP WITH 2 MAX ASSIST. TIGIST PATENT. FALL PRECAUTIONS IN PLACE. CALL LIGHT WITHIN REACH. WILL CONTINUE TO MONITOR.
[2019-09-02 16:40] VITALS: BP 156/97
[2019-09-02 21:30] VITALS: BP 165/100
[2019-09-03 04:38] LABS: CALCIUM 7.4 mg/dL (8.5-10.1); CREATININE 2.1 mg/dL (0.6-1.3); POTASSIUM 4.9 mmol/L (3.5-5.1)
--- NOTE | 2019-09-03 05:28 | NUR ---
O2 SAT 93% ON RA. MEDS GIVEN ORDERED WITH APPLE SAUCE PER PT REQUEST. TYLENOL GIVEN FOR EPIGASTRIC AND SHOULDER PAIN. ESCOTO IN PLACE. SLEEPING ON HOURLY ROUNDS. WILL CONTINUE TO MONITOR.
[2019-09-03 07:48] VITALS: BP 152/90
[2019-09-03 15:06] VITALS: BP 152/90
--- NOTE | 2019-09-03 15:14 | NUR ---
Received order from physician to arrange d/c back to [facility] today. Called service parts coordinator at facility and faxed orders. Chart copied. [facility] service parts coordinator arranged w/c van transportation at 1800. Called daughter and left message. Notified nurse of d/c plans. No other needs identified. [facility] [phone]
[2019-09-03 16:00] VITALS: BP 174/105
--- NOTE | 2019-09-03 17:16 | NUR ---
PT DISCHARGED TO [facility] AT 1715 BY WHEELCHAIR WITH WHEELCHAIR VAN. IV OUT PERSONAL BELONGINGS SENT WITH PT. REPORT CALLED. DENIED PAIN. DENIED NAUSEA. PT STABLE UPON DISCHARGE
--- NOTE | 2019-09-07 18:34 | CON ---
[address] [address] CONSULTATION Name: GABRIELE CHUN Room: [address] IN .R.#: [id number] Admission: 08/23/19 Attend Phys: Macho Oscar MD Discharge: 09/03/19 Date of : 49 Report #: [id number] THIS REPORT FOR: //name// CC: Macho Olivo CONSULTING PHYSICIAN: Macho Oscar MD REASON FOR CONSULTATION: Chronic kidney disease and kidney transplant. HISTORY OF PRESENT ILLNESS: A 74-year-old female admitted with swelling in the right arm, she was recently hospitalized here and discharged. She underwent an upper extremity ultrasound, which did not show any evidence of thrombosis. She appears to be comfortable. She was recently having severe diarrhea, which has slowed somewhat. She is on diuretics to help manage her swelling. Breathing cates, she feels comfortable at this time, does not have any complaints and has otherwise been doing well. REVIEW OF SYSTEMS: Constitutional, psych, heme, eyes, ENT, respiratory, cardiac, GI, , endocrine, all negative except as documented above. PAST MEDICAL HISTORY: History of systolic heart failure, kidney transplant, donor in 2006 with chronic kidney disease followed by Dr. Oliver as an outpatient, COPD, diabetes type 2, hypertension. FAMILY HISTORY: Noncontributory to current clinical case. SOCIAL HISTORY: No tobacco. PHYSICAL EXAMINATION: VITAL SIGNS: Blood pressure is 130/79, pulse 50, respirations 17, temperature 37.2. GENERAL: No acute distress. EYES: Open. EARS: Externally normal. NECK: Supple. CARDIOVASCULAR: Regular rate. LUNGS: Diminished breath sounds. ABDOMEN: Soft. MUSCULOSKELETAL: Nontender. Positive edema. PSYCHIATRIC: Awake, alert. LABORATORY DATA: White cell count 5.3, hemoglobin 11.7, platelets 110. Sodium 140, potassium 4.4, chloride 105, bicarbonate 28, BUN 63, creatinine 2.3, glucose 157, calcium 6.9, magnesium 1.7, albumin was 2.7. ASSESSMENT: [place] [address] CONSULTATION Name: GABRIELE CHUN Room: [address]#: [id number] Admission: 08/23/19 Attend Phys: Macho Oscar MD Discharge: 09/03/19 Date of : 49 Report #: [id number] 1. Acute kidney injury in the setting of diarrhea, last creatinine on 08/12 was 1.4, creatinine now 2.3. 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 There was some evidence of acute tubular injury, but no evidence of rejection. 2. donor kidney transplant in 2006 with chronic kidney disease stage 3, followed by Dr. Oliver as an outpatient. 3. History of systolic heart failure. 4. History of hypertension. 5. History of paroxysmal atrial fibrillation. 6. History of chronic obstructive pulmonary disease. 7. History of anemia with iron deficiency. 8. Proteinuria with a 24-hour urine protein of 3842. PLAN: 1. Tacrolimus levels have been ordered. 2. Check transplant renal ultrasound. 3. Hypocalcemia. We will replace. 4. Volume overload. 5. Hypoalbuminemia with an albumin of 2.7. 6. Hypomagnesemia. We will start oral magnesium. 7. She is on a prednisone taper, I am not sure what this is for but I believe she is normally on tacrolimus and mycophenolate for her transplant immunosuppression. We will go ahead and resume the mycophenolate at 500 mg twice a day. 8. Monitor I's and O's and check bladder scan. 9. She is on Bumex 1 mg twice a day. For the time being, we will go ahead and hold that in light of her diarrhea. 10. Discontinue amlodipine. 11. She is on a PPI, which brings the question of possible interstitial nephritis, but this is more likely intravascular volume depletion. 12. Strict I's and O's. 13. We will check an a.m. chest x-ray. 14. No acute indications for dialysis at this time. She did have a serum electrophoresis done on 08/09, which did not reveal any evidence of monoclonal protein. Urine protein electrophoresis did not show any evidence of monoclonal protein either. We will follow along with you. Thank you for requesting my opinion in the care and management of this patient. <ELECTRONICALLY SIGNED> By: iGovani Cisneros MD 09/07/19 1834 [id number] [id number] Cisneros MD /nt
== END 2019-09-03 17:24 | DRG 698 ==
LOC: M.ERS 15:51 → M.TBA-ER 17:58 → M.2W 17:58 → M.ORTHSURG 09-01 16:00
PROVIDERS: Family Medicine; Internal Medicine; Internal Medicine Nephrology; ADMIT Internal Medicine
DX: T86.12 Kidney transplant failure (principal); J96.22 Acute and chronic respiratory failure with hypercapnia; I13.2 Hypertensive heart and chronic kidney disease with heart failure and with stage 5 chronic kidney disease, or end stage renal disease; I50.22 Chronic systolic (congestive) heart failure; E44.0 Moderate protein-calorie malnutrition; N39.0 Urinary tract infection, site not specified; D68.69 Other thrombophilia; N17.9 Acute kidney failure, unspecified; N18.3 Chronic kidney disease, stage 3 (moderate); R33.9 Retention of urine, unspecified; E11.22 Type 2 diabetes mellitus with diabetic chronic kidney disease; J44.9 Chronic obstructive pulmonary disease, unspecified; B96.89 Other specified bacterial agents as the cause of diseases classified elsewhere; E66.9 Obesity, unspecified; E86.0 Dehydration; I48.0 Paroxysmal atrial fibrillation; E83.51 Hypocalcemia; E88.09 Other disorders of plasma-protein metabolism, not elsewhere classified; E83.42 Hypomagnesemia; Y83.8 Other surgical procedures as the cause of abnormal reaction of the patient, or of later complication, without mention of misadventure at the time of the procedure; Y92.89 Other specified places as the place of occurrence of the external cause; Z79.01 Long term (current) use of anticoagulants; Z79.84 Long term (current) use of oral hypoglycemic drugs; Z79.4 Long term (current) use of insulin; Z68.41 Body mass index [BMI] 40.0-44.9, adult; Z79.899 Other long term (current) drug therapy; Z88.0 Allergy status to penicillin; Z88.2 Allergy status to sulfonamides; Z88.8 Allergy status to other drugs, medicaments and biological substances